=== PATIENT | male | born 1945 | race Caucasian/White ===

== ENCOUNTER 2018-12-08 10:05 | Inpatient (IN) | payer OTHER ==
[2018-12-08 10:42] LABS: ADD MAN DIFF? NO
[2018-12-08 10:46] LABS: BASOPHILS % 0.3 % (0.0-2.0); EOSINOPHILS % 0.2 % (0.0-7.0); HEMATOCRIT 37.7 % (42.0-52.0); LYMPHOCYTES # 1.5 10^3/ul (0.8-2.9); LYMPHOCYTES % 14.3 % (15.0-51.0); MEAN CORPUSCULAR HEMOGLOBIN 29.3 pg (29.0-33.0); MEAN CORPUSCULAR HGB CONC 31.8 g/dl (32.0-37.0); MEAN CORPUSCULAR VOLUME 92.2 fl (82.0-101.0); MEAN PLATELET VOLUME 9.3 fl (7.4-10.4); MONOCYTE # 0.6 10^3/ul (0.3-0.9); MONOCYTES % 5.8 % (0.0-11.0); NEUTROPHIL # 8.3 10^3/ul (1.6-7.5); NEUTROPHILS % 78.9 % (39.0-77.0); PLATELET COUNT 354 10^3/UL (140-415); RED BLOOD COUNT 4.09 10^6/ul (4.70-6.10); RED CELL DISTRIBUTION WIDTH 12.4 % (11.5-14.5)
[2018-12-08 10:46] LABS: WHITE BLOOD COUNT 10.5 10^3/ul (4.8-10.8)
[2018-12-08 11:06] LABS: INR 1.08; PROTIME 14.1 Sec (11.9-14.9); PT RATIO 1.1
[2018-12-08 11:21] LABS: ALANINE AMINOTRANSFERASE 25 IU/L (13-69); ALBUMIN/GLOBULIN RATIO 0.86; ALKALINE PHOSPHATASE 107 IU/L (42-121); ANION GAP 12 (5-13); ASPARTATE AMINO TRANSFERASE 32 IU/L (15-46); BILIRUBIN,INDIRECT 0.5 mg/dl (0-1.1); BILIRUBIN,TOTAL 0.5 mg/dl (0.2-1.3); BLOOD UREA NITROGEN 31 mg/dl (7-20); CALCIUM 9.7 mg/dl (8.4-10.2); CARBON DIOXIDE 25 mmol/L (21-31); CHLORIDE 99 mmol/L (97-110); CREATININE 1.95 mg/dl (0.61-1.24); GLUCOSE 219 mg/dl (70-220); SODIUM 136 mmol/L (135-144); TOTAL PROTEIN 8.6 g/dl (6.1-8.1)
[2018-12-08] MEDS: PIPER-TAZO 3.375 GM IV (PMX) 100 ML IVPB (11:31)
[2018-12-08 11:32] LABS: TROPONIN-I < 0.012 ng/ml (0.000-0.120)
[2018-12-08] MEDS: VANCOMYCIN 1 GM (PMX) 250 ML IVPB (12:13)
[2018-12-08] MEDS ORDERED: ACETAMINOPHEN 325 MG TAB PO (13:00)
[2018-12-08] MEDS ORDERED: ONDANSETRON 4 MG INJ IV ×2 (13:00→14:00)
[2018-12-08 13:07] LABS: LACTIC ACID 1.3 mmol/L (0.5-2.0)
[2018-12-08] MEDS ORDERED: ZOLPIDEM 5 MG TAB PO (14:00)
[2018-12-08] MEDS ORDERED: ACETAMINOPHEN/CODEINE #3 TAB PO (14:00)
[2018-12-08] MEDS ORDERED: morphine 2 MG INJ IV (14:00)
[2018-12-08] MEDS ORDERED: GLUCOSE GEL 15 GRAM TUBE BUCCAL (14:30)
[2018-12-08] MEDS ORDERED: GLUCOSE GEL 15 GRAM TUBE PO ×2 (14:30)
[2018-12-08] MEDS ORDERED: DEXTROSE 50% 50 ML SYRINGE IV ×2 (14:30)
[2018-12-08] MEDS ORDERED: GLUCAGON 1 MG INJ IM (14:30)
[2018-12-08] MEDS: SOD CHLORIDE 0.9% 1,000 ML IV (15:39)
[2018-12-08] MEDS: DOCUSATE SODIUM 100 MG CAP PO (15:40)
[2018-12-08] MEDS: HEPARIN 5,000 UNIT/1 ML VIAL SC ×2 (15:43→21:12)
[2018-12-08] MEDS ORDERED: VANCOMYCIN IV PER PHARMACY XX (16:30)
[2018-12-08 17:06] LABS: LACTIC ACID 1.3 mmol/L (0.5-2.0)
[2018-12-08] MEDS: LEVOFLOXACIN 500MG/D5W (PMX) 100 ML IVPB (17:34)
[2018-12-08] MEDS: INSULIN ASPART [NOVOLOG] 3 ML PEN SC ×4 (17:36→21:11)
[2018-12-08] MEDS ORDERED: POVIDONE IODINE 10% 28.4 GM OINT TOP (21:00)
[2018-12-08] MEDS ORDERED: BETADINE SOLUTION TOP (21:00)
[2018-12-08] MEDS: INSULIN GLARGINE [LANTus] (100 UNITS/ML) SYG SC (21:10)
[2018-12-08] MEDS: FAMOTIDINE 20 MG TAB PO (21:14)
[2018-12-08] MEDS: BETADINE SOLUTION TOP (21:37)
[2018-12-09] MEDS: DOCUSATE SODIUM 100 MG CAP PO ×2 (02:00→14:00)
[2018-12-09] MEDS: ACCU-CHEK XX (02:30)
[2018-12-09] MEDS: SOD CHLORIDE 0.9% 1,000 ML IV ×2 (04:05→15:12)
[2018-12-09] MEDS: HEPARIN 5,000 UNIT/1 ML VIAL SC ×3 (06:07→23:02)
[2018-12-09] MEDS: LOPERAMIDE 2 MG CAP PO (06:30)
[2018-12-09 07:17] LABS: ADD MAN DIFF? NO
[2018-12-09 07:20] LABS: BASOPHILS % 0.3 % (0.0-2.0); EOSINOPHILS % 0.4 % (0.0-7.0); HEMATOCRIT 32.3 % (42.0-52.0); HEMOGLOBIN 10.3 g/dl (14.0-18.0); LYMPHOCYTES # 1.4 10^3/ul (0.8-2.9); LYMPHOCYTES % 18.9 % (15.0-51.0); MEAN CORPUSCULAR HEMOGLOBIN 29.3 pg (29.0-33.0); MEAN CORPUSCULAR HGB CONC 31.9 g/dl (32.0-37.0); MONOCYTE # 0.6 10^3/ul (0.3-0.9); MONOCYTES % 7.7 % (0.0-11.0); NEUTROPHIL # 5.3 10^3/ul (1.6-7.5); NEUTROPHILS % 72.3 % (39.0-77.0); PLATELET COUNT 323 10^3/UL (140-415); RED BLOOD COUNT 3.51 10^6/ul (4.70-6.10); RED CELL DISTRIBUTION WIDTH 12.3 % (11.5-14.5)
[2018-12-09 07:20] LABS: WHITE BLOOD COUNT 7.3 10^3/ul (4.8-10.8)
[2018-12-09 07:35] LABS: HEMOGLOBIN A1C 12.9 % (0-5.9)
[2018-12-09 07:47] LABS: ANION GAP 9 (5-13); BLOOD UREA NITROGEN 24 mg/dl (7-20); CALCIUM 8.9 mg/dl (8.4-10.2); CARBON DIOXIDE 24 mmol/L (21-31); CHLORIDE 102 mmol/L (97-110); CHOL/HDL RATIO 9.8 RATIO; CHOLESTEROL 128 mg/dl (100-200); GLUCOSE 123 mg/dl (70-220); HDL CHOLESTEROL 13 mg/dl (31-75); LDL CHOLESTEROL,CALCULATED 82 mg/dl; PHOSPHORUS 3.9 mg/dl (2.5-4.9); POTASSIUM 4.8 mmol/L (3.5-5.1); SODIUM 135 mmol/L (135-144); TRIGLYCERIDES 164 mg/dl (0-149)
[2018-12-09] MEDS: INSULIN ASPART [NOVOLOG] 3 ML PEN SC ×7 (08:00→21:00)
[2018-12-09] MEDS: VANCOMYCIN 1 GM 250 ML IVPB (08:56)
[2018-12-09] MEDS: CHOLECALCIFEROL 1,000 UNIT TAB PO (08:58)
[2018-12-09] MEDS: ASPIRIN 81 MG TAB PO (08:58)
[2018-12-09] MEDS: FAMOTIDINE 20 MG TAB PO ×2 (08:58→23:00)
[2018-12-09] MEDS: BETADINE SOLUTION TOP ×2 (09:00→21:00)
[2018-12-09] MEDS ORDERED: LIDOCAINE 1% (MDV) 20 ML INJ (11:27)
[2018-12-09] MEDS ORDERED: HEPARIN 1000 UNITS/NS (A-LINE) 1,000 ML (11:27)
[2018-12-09] MEDS ORDERED: IODIXANOL LOCM 100 ML BTL ×2 (11:27→12:54)
[2018-12-09] MEDS: LEVOFLOXACIN 500MG/D5W (PMX) 100 ML IVPB (17:28)
[2018-12-09] MEDS: ATORVASTATIN 40 MG TAB PO (23:00)
[2018-12-09] MEDS: INSULIN GLARGINE [LANTus] (100 UNITS/ML) SYG SC (23:01)
[2018-12-10] MEDS: SOD CHLORIDE 0.9% 1,000 ML IV ×3 (00:15→20:42)
[2018-12-10] MEDS: DOCUSATE SODIUM 100 MG CAP PO ×2 (01:23→13:27)
[2018-12-10] MEDS: ACCU-CHEK XX (01:23)
[2018-12-10] MEDS: ACETAMINOPHEN 325 MG TAB PO (01:24)
[2018-12-10] MEDS: HEPARIN 5,000 UNIT/1 ML VIAL SC ×3 (05:31→22:44)
[2018-12-10] MEDS: INSULIN ASPART [NOVOLOG] 3 ML PEN SC ×7 (08:00→20:44)
[2018-12-10] MEDS: VANCOMYCIN 1 GM 250 ML IVPB (09:16)
[2018-12-10] MEDS: FAMOTIDINE 20 MG TAB PO ×2 (09:17→20:35)
[2018-12-10] MEDS: CHOLECALCIFEROL 1,000 UNIT TAB PO (09:17)
[2018-12-10] MEDS: ASPIRIN 81 MG TAB PO (09:17)
[2018-12-10] MEDS: BETADINE SOLUTION TOP ×3 (09:27→22:48)
[2018-12-10 13:54] LABS: ADD UMIC YES; UR ASCORBIC ACID NEGATIVE (NEGATIVE); UR BILIRUBIN (Dip) NEGATIVE (NEGATIVE); UR BLOOD (Dip) 1+ mg/dL (NEGATIVE); UR CLARITY CLEAR (CLEAR); UR COLOR YELLOW (YELLOW); UR GLUCOSE (Dip) 3+ mg/dL (NEGATIVE); UR KETONES (Dip) NEGATIVE (NEGATIVE); UR LEUKOCYTE ESTERASE (Dip) NEGATIVE Leu/ul (NEGATIVE); UR NITRITE (Dip) NEGATIVE (NEGATIVE); UR RBC 2 /HPF (0-5); UR SPECIFIC GRAVITY (Dip) 1.014 (1.003-1.030); UR TOTAL PROTEIN (Dip) NEGATIVE (NEGATIVE); UR UROBILINOGEN (Dip) NEGATIVE (NEGATIVE); UR WBC 0 /HPF (0-5)
[2018-12-10 14:17] LABS: CREATININE,URINE RANDOM 54.28 mg/dl (20-370)
[2018-12-10 14:17] LABS: SODIUM,URINE RANDOM 75 mmol/L (30-90)
[2018-12-10] MEDS: LEVOFLOXACIN 500MG/D5W (PMX) 100 ML IVPB (16:26)
[2018-12-10] MEDS: HYDROCODONE/APAP (5/325) TAB PO (16:26)
[2018-12-10] MEDS: ATORVASTATIN 40 MG TAB PO (20:35)
[2018-12-10] MEDS: INSULIN GLARGINE [LANTus] (100 UNITS/ML) SYG SC (20:36)
[2018-12-11] MEDS: DOCUSATE SODIUM 100 MG CAP PO ×2 (02:00→14:00)
[2018-12-11] MEDS: ACCU-CHEK XX (02:00)
[2018-12-11] MEDS: HEPARIN 5,000 UNIT/1 ML VIAL SC ×3 (06:03→22:09)
[2018-12-11] MEDS: INSULIN ASPART [NOVOLOG] 3 ML PEN SC ×7 (08:00→20:26)
[2018-12-11] MEDS: HYDROCODONE/APAP (5/325) TAB PO (08:11)
[2018-12-11] MEDS: CHOLECALCIFEROL 1,000 UNIT TAB PO (08:11)
[2018-12-11] MEDS: FAMOTIDINE 20 MG TAB PO ×2 (08:11→20:22)
[2018-12-11] MEDS: ASPIRIN 81 MG TAB PO (08:11)
[2018-12-11] MEDS: BETADINE SOLUTION TOP ×2 (08:22→20:28)
[2018-12-11 08:55] LABS: CREATININE 1.15 mg/dl (0.61-1.24)
[2018-12-11 08:55] LABS: BLOOD UREA NITROGEN 15 mg/dl (7-20)
[2018-12-11 09:22] LABS: VANCOMYCIN,TROUGH 7.9 ug/ml (10.0-20.0)
[2018-12-11] MEDS: VANCOMYCIN 1.5 GM/NS 250 ML 250 ML IVPB (11:38)
[2018-12-11] MEDS: LEVOFLOXACIN 500MG/D5W (PMX) 100 ML IVPB (17:22)
[2018-12-11] MEDS: ATORVASTATIN 40 MG TAB PO (20:22)
[2018-12-11] MEDS: INSULIN GLARGINE [LANTus] (100 UNITS/ML) SYG SC (20:26)
[2018-12-12] MEDS: ACCU-CHEK XX (01:40)
[2018-12-12] MEDS: DOCUSATE SODIUM 100 MG CAP PO ×2 (02:50→13:24)
[2018-12-12] MEDS: HEPARIN 5,000 UNIT/1 ML VIAL SC ×3 (06:04→21:12)
[2018-12-12 07:34] LABS: ADD MAN DIFF? NO
[2018-12-12 07:44] LABS: BASOPHILS % 0.5 % (0.0-2.0); EOSINOPHILS # 0.1 10^3/ul (0.0-0.5); EOSINOPHILS % 0.8 % (0.0-7.0); HEMATOCRIT 32.7 % (42.0-52.0); HEMOGLOBIN 10.5 g/dl (14.0-18.0); LYMPHOCYTES # 1.6 10^3/ul (0.8-2.9); MEAN CORPUSCULAR HEMOGLOBIN 29.6 pg (29.0-33.0); MEAN CORPUSCULAR HGB CONC 32.1 g/dl (32.0-37.0); MEAN CORPUSCULAR VOLUME 92.1 fl (82.0-101.0); MONOCYTE # 0.5 10^3/ul (0.3-0.9); MONOCYTES % 8.3 % (0.0-11.0); NEUTROPHIL # 4.2 10^3/ul (1.6-7.5); NEUTROPHILS % 64.8 % (39.0-77.0); PLATELET COUNT 320 10^3/UL (140-415); RED BLOOD COUNT 3.55 10^6/ul (4.70-6.10); RED CELL DISTRIBUTION WIDTH 12.4 % (11.5-14.5)
[2018-12-12 07:44] LABS: WHITE BLOOD COUNT 6.5 10^3/ul (4.8-10.8)
[2018-12-12] MEDS: INSULIN ASPART [NOVOLOG] 3 ML PEN SC ×7 (08:00→20:45)
[2018-12-12] MEDS: ASPIRIN 81 MG TAB PO (08:09)
[2018-12-12] MEDS: CHOLECALCIFEROL 1,000 UNIT TAB PO (08:09)
[2018-12-12] MEDS: FAMOTIDINE 20 MG TAB PO ×2 (08:09→20:38)
[2018-12-12] MEDS: BETADINE SOLUTION TOP ×2 (08:19→20:45)
[2018-12-12 08:20] LABS: ANION GAP 9 (5-13); BLOOD UREA NITROGEN 16 mg/dl (7-20); CARBON DIOXIDE 23 mmol/L (21-31); CHLORIDE 104 mmol/L (97-110); CREATININE 1.16 mg/dl (0.61-1.24); GLUCOSE 95 mg/dl (70-220); MAGNESIUM 1.6 mg/dl (1.7-2.5); POTASSIUM 4.1 mmol/L (3.5-5.1); SODIUM 136 mmol/L (135-144)
[2018-12-12] MEDS: MAGNESIUM SULFATE 2 GM/50 ML 50 ML IVPB (10:10)
[2018-12-12] MEDS ORDERED: MAGNESIUM SULFATE 2 GM/50 ML 50 ML IVPB (11:30)
[2018-12-12] MEDS: HYDROCODONE/APAP (5/325) TAB PO (13:40)
[2018-12-12] MEDS: FLUCONAZOLE 200 MG TAB PO (13:40)
[2018-12-12] MEDS: LEVOFLOXACIN 500MG/D5W (PMX) 100 ML IVPB (16:58)
[2018-12-12] MEDS: ATORVASTATIN 40 MG TAB PO (20:38)
[2018-12-12] MEDS: INSULIN GLARGINE [LANTus] (100 UNITS/ML) SYG SC (20:44)
[2018-12-13] MEDS: ACCU-CHEK XX (02:00)
[2018-12-13] MEDS: DOCUSATE SODIUM 100 MG CAP PO ×2 (02:13→14:16)
[2018-12-13] MEDS: HEPARIN 5,000 UNIT/1 ML VIAL SC ×3 (05:26→21:42)
[2018-12-13 06:47] LABS: ADD MAN DIFF? NO
[2018-12-13 06:54] LABS: WHITE BLOOD COUNT 6.7 10^3/ul (4.8-10.8)
[2018-12-13 06:54] LABS: BASOPHILS % 0.6 % (0.0-2.0); EOSINOPHILS # 0.1 10^3/ul (0.0-0.5); EOSINOPHILS % 1.2 % (0.0-7.0); HEMATOCRIT 33.6 % (42.0-52.0); HEMOGLOBIN 10.6 g/dl (14.0-18.0); LYMPHOCYTES # 1.6 10^3/ul (0.8-2.9); LYMPHOCYTES % 23.3 % (15.0-51.0); MEAN CORPUSCULAR HEMOGLOBIN 28.9 pg (29.0-33.0); MEAN CORPUSCULAR HGB CONC 31.5 g/dl (32.0-37.0); MEAN CORPUSCULAR VOLUME 91.6 fl (82.0-101.0); MONOCYTE # 0.5 10^3/ul (0.3-0.9); MONOCYTES % 7.5 % (0.0-11.0); NEUTROPHIL # 4.5 10^3/ul (1.6-7.5); NEUTROPHILS % 66.8 % (39.0-77.0); PLATELET COUNT 324 10^3/UL (140-415); RED BLOOD COUNT 3.67 10^6/ul (4.70-6.10); RED CELL DISTRIBUTION WIDTH 12.5 % (11.5-14.5)
[2018-12-13 07:32] LABS: PHOSPHORUS 4.2 mg/dl (2.5-4.9)
[2018-12-13 07:32] LABS: MAGNESIUM 1.8 mg/dl (1.7-2.5)
[2018-12-13 07:58] LABS: ANION GAP 10 (5-13); BLOOD UREA NITROGEN 18 mg/dl (7-20); CALCIUM 9.1 mg/dl (8.4-10.2); CARBON DIOXIDE 23 mmol/L (21-31); CHLORIDE 104 mmol/L (97-110); GLUCOSE 91 mg/dl (70-220); POTASSIUM 4.2 mmol/L (3.5-5.1); SODIUM 137 mmol/L (135-144)
[2018-12-13] MEDS: INSULIN ASPART [NOVOLOG] 3 ML PEN SC ×7 (08:00→20:34)
[2018-12-13] MEDS: CHOLECALCIFEROL 1,000 UNIT TAB PO (08:12)
[2018-12-13] MEDS: ASPIRIN 81 MG TAB PO (08:12)
[2018-12-13] MEDS: FLUCONAZOLE 200 MG TAB PO (08:12)
[2018-12-13] MEDS: FAMOTIDINE 20 MG TAB PO ×2 (08:12→20:35)
[2018-12-13] MEDS: BETADINE SOLUTION TOP ×2 (08:14→20:38)
[2018-12-13 16:02] LABS: CREATININE, RANDOM URINE 53 mg/dL (20-320); MICROALBUMIN 4.6 mg/dL; MICROALBUMIN/CREATININE RATIO 87 (<30)
[2018-12-13] MEDS: LEVOFLOXACIN 500MG/D5W (PMX) 100 ML IVPB (16:38)
[2018-12-13] MEDS: ATORVASTATIN 40 MG TAB PO (20:35)
[2018-12-13] MEDS: INSULIN GLARGINE [LANTus] (100 UNITS/ML) SYG SC (20:37)
[2018-12-14] MEDS: ACCU-CHEK XX (01:41)
[2018-12-14] MEDS: DOCUSATE SODIUM 100 MG CAP PO ×2 (01:42→14:14)
[2018-12-14] MEDS: HEPARIN 5,000 UNIT/1 ML VIAL SC ×3 (05:36→22:30)
[2018-12-14 05:52] LABS: ADD MAN DIFF? NO
[2018-12-14 05:59] LABS: WHITE BLOOD COUNT 7.3 10^3/ul (4.8-10.8)
[2018-12-14 05:59] LABS: BASOPHILS % 0.3 % (0.0-2.0); EOSINOPHILS # 0.1 10^3/ul (0.0-0.5); EOSINOPHILS % 1.1 % (0.0-7.0); HEMATOCRIT 33.7 % (42.0-52.0); HEMOGLOBIN 10.6 g/dl (14.0-18.0); LYMPHOCYTES # 1.9 10^3/ul (0.8-2.9); LYMPHOCYTES % 25.5 % (15.0-51.0); MEAN CORPUSCULAR HEMOGLOBIN 28.6 pg (29.0-33.0); MEAN CORPUSCULAR HGB CONC 31.5 g/dl (32.0-37.0); MEAN CORPUSCULAR VOLUME 91.1 fl (82.0-101.0); MEAN PLATELET VOLUME 8.6 fl (7.4-10.4); MONOCYTE # 0.6 10^3/ul (0.3-0.9); MONOCYTES % 8.7 % (0.0-11.0); NEUTROPHIL # 4.6 10^3/ul (1.6-7.5); NEUTROPHILS % 63.7 % (39.0-77.0); PLATELET COUNT 323 10^3/UL (140-415); RED CELL DISTRIBUTION WIDTH 12.7 % (11.5-14.5)
[2018-12-14 06:11] LABS: MAGNESIUM 1.7 mg/dl (1.7-2.5)
[2018-12-14 06:11] LABS: PHOSPHORUS 4.4 mg/dl (2.5-4.9)
[2018-12-14 06:16] LABS: ANION GAP 8 (5-13); BLOOD UREA NITROGEN 19 mg/dl (7-20); CALCIUM 9.3 mg/dl (8.4-10.2); CARBON DIOXIDE 23 mmol/L (21-31); CHLORIDE 105 mmol/L (97-110); CREATININE 1.23 mg/dl (0.61-1.24); GLUCOSE 106 mg/dl (70-220); POTASSIUM 4.3 mmol/L (3.5-5.1); SODIUM 136 mmol/L (135-144)
[2018-12-14] MEDS: INSULIN ASPART [NOVOLOG] 3 ML PEN SC ×7 (08:00→20:51)
[2018-12-14] MEDS: CHOLECALCIFEROL 1,000 UNIT TAB PO (08:24)
[2018-12-14] MEDS: FAMOTIDINE 20 MG TAB PO ×2 (08:24→20:50)
[2018-12-14] MEDS: ASPIRIN 81 MG TAB PO (08:25)
[2018-12-14] MEDS: BETADINE SOLUTION TOP ×3 (11:05→20:52)
[2018-12-14] MEDS: HYDROCODONE/APAP (5/325) TAB PO (14:14)
[2018-12-14] MEDS: LEVOFLOXACIN 500MG/D5W (PMX) 100 ML IVPB (17:08)
[2018-12-14] MEDS: ATORVASTATIN 40 MG TAB PO (20:50)
[2018-12-14] MEDS: INSULIN GLARGINE [LANTus] (100 UNITS/ML) SYG SC (20:51)
[2018-12-15] MEDS: DOCUSATE SODIUM 100 MG CAP PO ×2 (01:05→13:07)
[2018-12-15] MEDS: ACCU-CHEK XX (01:05)
[2018-12-15] MEDS: HEPARIN 5,000 UNIT/1 ML VIAL SC (05:07)
[2018-12-15] MEDS: SOD CHLORIDE 0.9% 1,000 ML IV (05:41)
[2018-12-15 06:18] LABS: ADD MAN DIFF? NO
[2018-12-15 06:44] LABS: WHITE BLOOD COUNT 7.1 10^3/ul (4.8-10.8)
[2018-12-15 06:44] LABS: BASOPHILS % 0.4 % (0.0-2.0); EOSINOPHILS # 0.1 10^3/ul (0.0-0.5); EOSINOPHILS % 1.1 % (0.0-7.0); HEMATOCRIT 33.1 % (42.0-52.0); HEMOGLOBIN 10.6 g/dl (14.0-18.0); LYMPHOCYTES # 1.6 10^3/ul (0.8-2.9); LYMPHOCYTES % 23.2 % (15.0-51.0); MEAN CORPUSCULAR HEMOGLOBIN 29.4 pg (29.0-33.0); MEAN CORPUSCULAR VOLUME 91.7 fl (82.0-101.0); MEAN PLATELET VOLUME 8.7 fl (7.4-10.4); MONOCYTE # 0.6 10^3/ul (0.3-0.9); MONOCYTES % 8.5 % (0.0-11.0); NEUTROPHIL # 4.7 10^3/ul (1.6-7.5); NEUTROPHILS % 66.2 % (39.0-77.0); PLATELET COUNT 325 10^3/UL (140-415); RED BLOOD COUNT 3.61 10^6/ul (4.70-6.10); RED CELL DISTRIBUTION WIDTH 12.6 % (11.5-14.5)
[2018-12-15 06:48] LABS: MAGNESIUM 1.7 mg/dl (1.7-2.5)
[2018-12-15 06:48] LABS: PHOSPHORUS 4.7 mg/dl (2.5-4.9)
[2018-12-15 06:51] LABS: ANION GAP 12 (5-13); BLOOD UREA NITROGEN 26 mg/dl (7-20); CALCIUM 9.4 mg/dl (8.4-10.2); CARBON DIOXIDE 21 mmol/L (21-31); CHLORIDE 104 mmol/L (97-110); CREATININE 1.28 mg/dl (0.61-1.24); GLUCOSE 136 mg/dl (70-220); POTASSIUM 4.5 mmol/L (3.5-5.1); SODIUM 137 mmol/L (135-144)
[2018-12-15] MEDS ORDERED: GELATIN SIZE 100 SPONGE (06:52)
[2018-12-15] MEDS ORDERED: HEPARIN 1000 UNITS/ML 10 ML INJ ×2 (06:52→09:15)
[2018-12-15] MEDS ORDERED: THROMBIN 5000 UNIT (RECOTHROM) VIAL (06:52)
[2018-12-15] MEDS: HEPARIN 1000 UNITS/ML 10 ML INJ IRR (07:15)
[2018-12-15] MEDS ORDERED: GLYCOPYRROLATE 0.4 MG INJ ×2 (07:22→08:34)
[2018-12-15] MEDS ORDERED: LIDOCAINE 2% (SDV) 5 ML INJ (07:22)
[2018-12-15] MEDS ORDERED: ROCURONIUM 50 MG INJ ×2 (07:22→08:06)
[2018-12-15] MEDS ORDERED: SUCCINYLCHOLINE CHLORIDE 100 MG/5 ML SYG IV (07:22)
[2018-12-15] MEDS ORDERED: NEOSTIGMINE 3 MG/3 ML SYRINGE ×2 (07:22→08:34)
[2018-12-15] MEDS ORDERED: PROPOFOL 20 ML (07:22)
[2018-12-15] MEDS: INSULIN ASPART [NOVOLOG] 3 ML PEN SC ×8 (07:35→20:52)
[2018-12-15] MEDS ORDERED: MEPERIDINE 100 MG INJ (08:17)
[2018-12-15] MEDS ORDERED: CEFAZOLIN 1 GM INJ (08:33)
[2018-12-15] MEDS: FAMOTIDINE 20 MG TAB PO ×2 (09:00→20:10)
[2018-12-15] MEDS: BETADINE SOLUTION TOP ×2 (09:00→20:31)
[2018-12-15] MEDS: ASPIRIN 81 MG TAB PO ×2 (09:00→13:07)
[2018-12-15] MEDS: CHOLECALCIFEROL 1,000 UNIT TAB PO (09:00)
[2018-12-15] MEDS ORDERED: LABETALOL HCL 20MG INJ IV (09:30)
[2018-12-15] MEDS ORDERED: HYDROmorphONE 0.5 MG/0.5 ML SYG IV ×3 (09:30)
[2018-12-15] MEDS ORDERED: MEPERIDINE 25 MG INJ IV (09:30)
[2018-12-15] MEDS ORDERED: EPHEDrine 25 MG/5 ML SYG IV (09:30)
[2018-12-15] MEDS ORDERED: ONDANSETRON 4 MG INJ IV (09:30)
[2018-12-15] MEDS ORDERED: MIDAZOLAM 1 MG/ML 2 ML INJ IV (09:30)
[2018-12-15] MEDS ORDERED: DIPHENHYDRAMINE 50 MG INJ IV (09:30)
[2018-12-15] MEDS ORDERED: METOCLOPRAMIDE 10 MG INJ IV (09:30)
[2018-12-15] MEDS ORDERED: FENTAnyl 50 MCG/ML VIAL IV ×3 (09:30)
[2018-12-15] MEDS ORDERED: hydrALAzine 20 MG INJ IV (09:30)
[2018-12-15] MEDS ORDERED: ONDANSETRON 4 MG INJ (10:06)
[2018-12-15] MEDS ORDERED: LABETALOL HCL 20MG INJ (10:26)
[2018-12-15] MEDS: LACTATED RINGER'S 1,000 ML IV ×2 (10:30→17:01)
[2018-12-15] MEDS ORDERED: niCARdipine 50 MG in SOD CHLORIDE 0.9% 480 ML IV (12:00)
[2018-12-15] MEDS: CLOPIDOGREL 75 MG TAB PO (13:06)
[2018-12-15] MEDS: HYDROCODONE/APAP (5/325) TAB PO ×2 (13:21→23:34)
[2018-12-15] MEDS: LEVOFLOXACIN 500 MG TAB PO (17:00)
[2018-12-15] MEDS: ATORVASTATIN 40 MG TAB PO (20:10)
[2018-12-15] MEDS: INSULIN GLARGINE [LANTus] (100 UNITS/ML) SYG SC (20:12)
[2018-12-16] MEDS: DOCUSATE SODIUM 100 MG CAP PO ×2 (01:26→15:16)
[2018-12-16] MEDS: ACCU-CHEK XX (02:00)
[2018-12-16 05:01] LABS: ADD MAN DIFF? NO
[2018-12-16 05:06] LABS: BASOPHILS % 0.2 % (0.0-2.0); EOSINOPHILS % 0.4 % (0.0-7.0); HEMATOCRIT 29.4 % (42.0-52.0); HEMOGLOBIN 9.4 g/dl (14.0-18.0); LYMPHOCYTES # 1.7 10^3/ul (0.8-2.9); LYMPHOCYTES % 21.1 % (15.0-51.0); MEAN CORPUSCULAR HEMOGLOBIN 29.3 pg (29.0-33.0); MEAN CORPUSCULAR VOLUME 91.6 fl (82.0-101.0); MEAN PLATELET VOLUME 8.5 fl (7.4-10.4); MONOCYTE # 0.7 10^3/ul (0.3-0.9); NEUTROPHIL # 5.6 10^3/ul (1.6-7.5); NEUTROPHILS % 68.7 % (39.0-77.0); PLATELET COUNT 269 10^3/UL (140-415); RED BLOOD COUNT 3.21 10^6/ul (4.70-6.10)
[2018-12-16 05:06] LABS: WHITE BLOOD COUNT 8.1 10^3/ul (4.8-10.8)
[2018-12-16 05:23] LABS: ANION GAP 8 (5-13); BLOOD UREA NITROGEN 15 mg/dl (7-20); CALCIUM 8.6 mg/dl (8.4-10.2); CARBON DIOXIDE 26 mmol/L (21-31); CHLORIDE 102 mmol/L (97-110); GLUCOSE 97 mg/dl (70-220); POTASSIUM 4.3 mmol/L (3.5-5.1); SODIUM 136 mmol/L (135-144)
[2018-12-16 05:28] LABS: PHOSPHORUS 3.9 mg/dl (2.5-4.9)
[2018-12-16 05:28] LABS: MAGNESIUM 1.5 mg/dl (1.7-2.5)
[2018-12-16] MEDS: LEVOFLOXACIN 500 MG TAB PO (05:46)
[2018-12-16] MEDS: INSULIN ASPART [NOVOLOG] 3 ML PEN SC ×7 (08:37→20:42)
[2018-12-16] MEDS: CHOLECALCIFEROL 1,000 UNIT TAB PO (08:50)
[2018-12-16] MEDS: CLOPIDOGREL 75 MG TAB PO (08:50)
[2018-12-16] MEDS: FAMOTIDINE 20 MG TAB PO ×2 (08:50→20:43)
[2018-12-16] MEDS: ASPIRIN 81 MG TAB PO (08:52)
[2018-12-16] MEDS: MAGNESIUM SULFATE 2 GM/50 ML 50 ML IVPB (08:56)
[2018-12-16] MEDS: BETADINE SOLUTION TOP ×2 (12:32→20:44)
[2018-12-16] MEDS: ACETAMINOPHEN 325 MG TAB PO (15:16)
[2018-12-16] MEDS ORDERED: VANCOMYCIN IV PER PHARMACY XX (16:00)
[2018-12-16] MEDS: MEROPENEM 1 GM/50ML(PMX) 50 ML IVPB ×2 (16:53→20:43)
[2018-12-16] MEDS: VANCOMYCIN 1.5 GM/NS 250 ML 250 ML IVPB (17:32)
[2018-12-16] MEDS: ATORVASTATIN 40 MG TAB PO (20:43)
[2018-12-16] MEDS: INSULIN GLARGINE [LANTus] (100 UNITS/ML) SYG SC (22:10)
[2018-12-17] MEDS: DOCUSATE SODIUM 100 MG CAP PO ×2 (03:17→14:14)
[2018-12-17 06:20] LABS: ADD MAN DIFF? NO
[2018-12-17 06:27] LABS: WHITE BLOOD COUNT 8.6 10^3/ul (4.8-10.8)
[2018-12-17 06:27] LABS: BASOPHILS % 0.2 % (0.0-2.0); EOSINOPHILS # 0.1 10^3/ul (0.0-0.5); EOSINOPHILS % 0.8 % (0.0-7.0); HEMATOCRIT 29.6 % (42.0-52.0); HEMOGLOBIN 9.3 g/dl (14.0-18.0); LYMPHOCYTES # 1.6 10^3/ul (0.8-2.9); LYMPHOCYTES % 18.2 % (15.0-51.0); MEAN CORPUSCULAR HEMOGLOBIN 28.7 pg (29.0-33.0); MEAN CORPUSCULAR HGB CONC 31.4 g/dl (32.0-37.0); MEAN CORPUSCULAR VOLUME 91.4 fl (82.0-101.0); MEAN PLATELET VOLUME 8.7 fl (7.4-10.4); MONOCYTE # 0.7 10^3/ul (0.3-0.9); MONOCYTES % 7.8 % (0.0-11.0); NEUTROPHIL # 6.2 10^3/ul (1.6-7.5); NEUTROPHILS % 72.5 % (39.0-77.0); PLATELET COUNT 293 10^3/UL (140-415); RED BLOOD COUNT 3.24 10^6/ul (4.70-6.10); RED CELL DISTRIBUTION WIDTH 12.8 % (11.5-14.5)
[2018-12-17 06:36] LABS: MAGNESIUM 1.8 mg/dl (1.7-2.5)
[2018-12-17 06:36] LABS: PHOSPHORUS 3.3 mg/dl (2.5-4.9)
[2018-12-17 06:37] LABS: ANION GAP 6 (5-13); BLOOD UREA NITROGEN 18 mg/dl (7-20); CARBON DIOXIDE 25 mmol/L (21-31); CHLORIDE 102 mmol/L (97-110); CREATININE 1.05 mg/dl (0.61-1.24); GLUCOSE 134 mg/dl (70-220); SODIUM 133 mmol/L (135-144)
[2018-12-17] MEDS: INSULIN ASPART [NOVOLOG] 3 ML PEN SC ×7 (07:44→20:19)
[2018-12-17] MEDS: MEROPENEM 1 GM/50ML(PMX) 50 ML IVPB ×2 (08:07→23:13)
[2018-12-17] MEDS: FAMOTIDINE 20 MG TAB PO ×2 (08:07→20:18)
[2018-12-17] MEDS: ASPIRIN 81 MG TAB PO (08:07)
[2018-12-17] MEDS: CLOPIDOGREL 75 MG TAB PO (08:08)
[2018-12-17] MEDS: CHOLECALCIFEROL 1,000 UNIT TAB PO (08:08)
[2018-12-17] MEDS: BETADINE SOLUTION TOP ×2 (09:00→21:00)
[2018-12-17] MEDS: VANCOMYCIN 1.5 GM/NS 250 ML 250 ML IVPB (17:38)
[2018-12-17] MEDS: ATORVASTATIN 40 MG TAB PO (20:18)
[2018-12-17] MEDS: INSULIN GLARGINE [LANTus] (100 UNITS/ML) SYG SC (23:09)
[2018-12-18 06:12] LABS: ADD MAN DIFF? NO
[2018-12-18 06:25] LABS: WHITE BLOOD COUNT 6.6 10^3/ul (4.8-10.8)
[2018-12-18 06:25] LABS: BASOPHILS % 0.5 % (0.0-2.0); EOSINOPHILS # 0.1 10^3/ul (0.0-0.5); EOSINOPHILS % 1.4 % (0.0-7.0); HEMATOCRIT 29.5 % (42.0-52.0); HEMOGLOBIN 9.4 g/dl (14.0-18.0); LYMPHOCYTES # 1.4 10^3/ul (0.8-2.9); LYMPHOCYTES % 21.2 % (15.0-51.0); MEAN CORPUSCULAR HEMOGLOBIN 28.7 pg (29.0-33.0); MEAN CORPUSCULAR HGB CONC 31.9 g/dl (32.0-37.0); MEAN CORPUSCULAR VOLUME 89.9 fl (82.0-101.0); MEAN PLATELET VOLUME 8.7 fl (7.4-10.4); MONOCYTE # 0.6 10^3/ul (0.3-0.9); MONOCYTES % 9.6 % (0.0-11.0); NEUTROPHIL # 4.4 10^3/ul (1.6-7.5); NEUTROPHILS % 66.8 % (39.0-77.0); PLATELET COUNT 323 10^3/UL (140-415); RED BLOOD COUNT 3.28 10^6/ul (4.70-6.10); RED CELL DISTRIBUTION WIDTH 12.8 % (11.5-14.5)
[2018-12-18 06:56] LABS: ANION GAP 8 (5-13); BLOOD UREA NITROGEN 18 mg/dl (7-20); CARBON DIOXIDE 25 mmol/L (21-31); CHLORIDE 103 mmol/L (97-110); CREATININE 0.94 mg/dl (0.61-1.24); GLUCOSE 148 mg/dl (70-220); POTASSIUM 3.9 mmol/L (3.5-5.1); SODIUM 136 mmol/L (135-144)
[2018-12-18 07:05] LABS: PHOSPHORUS 3.3 mg/dl (2.5-4.9)
[2018-12-18 07:05] LABS: MAGNESIUM 1.7 mg/dl (1.7-2.5)
[2018-12-18] MEDS: INSULIN ASPART [NOVOLOG] 3 ML PEN SC ×7 (07:49→20:58)
[2018-12-18] MEDS: MEROPENEM 1 GM/50ML(PMX) 50 ML IVPB ×2 (08:40→21:52)
[2018-12-18] MEDS: ASPIRIN 81 MG TAB PO (08:41)
[2018-12-18] MEDS: FAMOTIDINE 20 MG TAB PO ×2 (08:41→20:48)
[2018-12-18] MEDS: CLOPIDOGREL 75 MG TAB PO (08:41)
[2018-12-18] MEDS: CHOLECALCIFEROL 1,000 UNIT TAB PO (08:41)
[2018-12-18] MEDS: ENOXAPARIN 30 MG/0.3 ML SYG SC (08:46)
[2018-12-18] MEDS: DOCUSATE SODIUM 100 MG CAP PO ×2 (08:48→20:47)
[2018-12-18] MEDS ORDERED: MAGNESIUM SULFATE 2 GM/50 ML 50 ML IVPB (10:30)
[2018-12-18] MEDS: BETADINE SOLUTION TOP ×2 (12:13→20:50)
[2018-12-18] MEDS: VANCOMYCIN 1.5 GM/NS 250 ML 250 ML IVPB (16:55)
[2018-12-18] MEDS: MAGNESIUM SULFATE 2 GM/50 ML 50 ML IVPB (18:22)
[2018-12-18] MEDS: CASPOFUNGIN 70 MG in SOD CHLORIDE 0.9% 250 ML IVPB (20:44)
[2018-12-18] MEDS: ATORVASTATIN 40 MG TAB PO (20:48)
[2018-12-18] MEDS: INSULIN GLARGINE [LANTus] (100 UNITS/ML) SYG SC (20:59)
[2018-12-19 05:40] LABS: ADD MAN DIFF? NO
[2018-12-19 05:44] LABS: BASOPHILS % 0.6 % (0.0-2.0); EOSINOPHILS # 0.1 10^3/ul (0.0-0.5); HEMATOCRIT 30.5 % (42.0-52.0); HEMOGLOBIN 9.6 g/dl (14.0-18.0); LYMPHOCYTES # 1.7 10^3/ul (0.8-2.9); LYMPHOCYTES % 24.5 % (15.0-51.0); MEAN CORPUSCULAR HEMOGLOBIN 28.9 pg (29.0-33.0); MEAN CORPUSCULAR HGB CONC 31.5 g/dl (32.0-37.0); MEAN CORPUSCULAR VOLUME 91.9 fl (82.0-101.0); MEAN PLATELET VOLUME 8.5 fl (7.4-10.4); MONOCYTE # 0.8 10^3/ul (0.3-0.9); MONOCYTES % 10.7 % (0.0-11.0); NEUTROPHIL # 4.4 10^3/ul (1.6-7.5); NEUTROPHILS % 61.8 % (39.0-77.0); PLATELET COUNT 331 10^3/UL (140-415); RED BLOOD COUNT 3.32 10^6/ul (4.70-6.10); RED CELL DISTRIBUTION WIDTH 12.5 % (11.5-14.5)
[2018-12-19 05:44] LABS: WHITE BLOOD COUNT 7.1 10^3/ul (4.8-10.8)
[2018-12-19 06:11] LABS: ANION GAP 5 (5-13); BLOOD UREA NITROGEN 22 mg/dl (7-20); CALCIUM 9.2 mg/dl (8.4-10.2); CARBON DIOXIDE 28 mmol/L (21-31); CHLORIDE 103 mmol/L (97-110); GLUCOSE 193 mg/dl (70-220); SODIUM 136 mmol/L (135-144)
[2018-12-19 07:16] LABS: PHOSPHORUS 3.6 mg/dl (2.5-4.9)
[2018-12-19] MEDS: INSULIN ASPART [NOVOLOG] 3 ML PEN SC ×6 (07:46→21:00)
[2018-12-19] MEDS: ASPIRIN 81 MG TAB PO (08:34)
[2018-12-19] MEDS: FAMOTIDINE 20 MG TAB PO ×2 (08:34→20:57)
[2018-12-19] MEDS: CLOPIDOGREL 75 MG TAB PO (08:34)
[2018-12-19] MEDS: CHOLECALCIFEROL 1,000 UNIT TAB PO (08:34)
[2018-12-19] MEDS: MEROPENEM 1 GM/50ML(PMX) 50 ML IVPB (08:35)
[2018-12-19] MEDS: ENOXAPARIN 30 MG/0.3 ML SYG SC (08:41)
[2018-12-19] MEDS: DOCUSATE SODIUM 100 MG CAP PO ×2 (08:46→21:06)
[2018-12-19] MEDS: BETADINE SOLUTION TOP ×2 (09:00→21:02)
[2018-12-19] MEDS ORDERED: CASPOFUNGIN 50 MG in SOD CHLORIDE 0.9% 250 ML IVPB (18:00)
[2018-12-19] MEDS: FLUCONAZOLE 200 MG (PMX) 100 ML IVPB (18:05)
[2018-12-19] MEDS: CEFEPIME 2GM/50 ML IVPB (20:57)
[2018-12-19] MEDS: ATORVASTATIN 40 MG TAB PO (20:57)
[2018-12-19] MEDS: INSULIN GLARGINE [LANTus] (100 UNITS/ML) SYG SC (21:00)
[2018-12-20] MEDS: INSULIN ASPART [NOVOLOG] 3 ML PEN SC ×8 (06:08→23:00)
[2018-12-20] MEDS: BETADINE SOLUTION TOP ×2 (08:28→21:00)
[2018-12-20] MEDS: DOCUSATE SODIUM 100 MG CAP PO ×2 (08:28→23:20)
[2018-12-20] MEDS: CHOLECALCIFEROL 1,000 UNIT TAB PO (08:28)
[2018-12-20] MEDS: FAMOTIDINE 20 MG TAB PO ×2 (08:28→23:20)
[2018-12-20] MEDS: ASPIRIN 81 MG TAB PO (08:28)
[2018-12-20] MEDS: CLOPIDOGREL 75 MG TAB PO (08:28)
[2018-12-20] MEDS: CEFEPIME 2GM/50 ML IVPB ×2 (08:38→23:12)
[2018-12-20] MEDS ORDERED: INSULIN ASPART [NOVOLOG] 3 ML PEN SC (09:00)
[2018-12-20] MEDS: ENOXAPARIN 30 MG/0.3 ML SYG SC (09:00)
[2018-12-20] MEDS ORDERED: SUCCINYLCHOLINE CHLORIDE 100 MG/5 ML SYG IV (17:11)
[2018-12-20] MEDS ORDERED: PROPOFOL 20 ML (17:11)
[2018-12-20] MEDS ORDERED: LIDOCAINE 2% (SDV) 5 ML INJ (17:11)
[2018-12-20] MEDS ORDERED: ROCURONIUM 50 MG INJ (17:11)
[2018-12-20] MEDS: METHYLENE BLUE 50 MG/10 ML AMPUL (18:21)
[2018-12-20] MEDS: POLYMYXIN/BACITRACIN 1L IRRIG (18:21)
[2018-12-20] MEDS ORDERED: ONDANSETRON 4 MG INJ IV (18:30)
[2018-12-20] MEDS ORDERED: LABETALOL HCL 20MG INJ IV (18:30)
[2018-12-20] MEDS ORDERED: MEPERIDINE 25 MG INJ IV (18:30)
[2018-12-20] MEDS ORDERED: MIDAZOLAM 1 MG/ML 2 ML INJ IV (18:30)
[2018-12-20] MEDS ORDERED: HYDROmorphONE 1 MG/5 ML IV SYRINGE IV ×3 (18:30)
[2018-12-20] MEDS ORDERED: hydrALAzine 20 MG INJ IV (18:30)
[2018-12-20] MEDS ORDERED: FENTAnyl 50 MCG/ML VIAL IV ×3 (18:30)
[2018-12-20] MEDS ORDERED: EPHEDrine 25 MG/5 ML SYG IV (18:30)
[2018-12-20] MEDS ORDERED: DIPHENHYDRAMINE 50 MG INJ IV (18:30)
[2018-12-20] MEDS ORDERED: METOCLOPRAMIDE 10 MG INJ IV (18:30)
[2018-12-20] MEDS ORDERED: NEOSTIGMINE 3 MG/3 ML SYRINGE ×2 (19:47→19:49)
[2018-12-20] MEDS ORDERED: GLYCOPYRROLATE 0.4 MG INJ (19:47)
[2018-12-20] MEDS ORDERED: EPHEDrine 25 MG/5 ML SYG (19:47)
[2018-12-20] MEDS ORDERED: ALBUMIN HUMAN 5% 250 ML (20:21)
[2018-12-20 20:31] LABS: WHITE BLOOD COUNT 9.2 10^3/ul (4.8-10.8)
[2018-12-20 20:31] LABS: ADD MAN DIFF? NO; BASOPHIL # 0.1 10^3/ul (0.0-0.1); BASOPHILS % 0.5 % (0.0-2.0); EOSINOPHILS # 0.1 10^3/ul (0.0-0.5); EOSINOPHILS % 1.3 % (0.0-7.0); HEMATOCRIT 27.7 % (42.0-52.0); HEMOGLOBIN 8.8 g/dl (14.0-18.0); LYMPHOCYTES # 3.8 10^3/ul (0.8-2.9); MEAN CORPUSCULAR HEMOGLOBIN 29.3 pg (29.0-33.0); MEAN CORPUSCULAR HGB CONC 31.8 g/dl (32.0-37.0); MEAN CORPUSCULAR VOLUME 92.3 fl (82.0-101.0); MEAN PLATELET VOLUME 8.6 fl (7.4-10.4); MONOCYTE # 0.7 10^3/ul (0.3-0.9); MONOCYTES % 7.4 % (0.0-11.0); NEUTROPHIL # 4.5 10^3/ul (1.6-7.5); NEUTROPHILS % 49.4 % (39.0-77.0); PLATELET COUNT 418 10^3/UL (140-415); RED CELL DISTRIBUTION WIDTH 12.9 % (11.5-14.5)
[2018-12-20] MEDS: ALBUMIN HUMAN 5% 250 ML IV ×2 (20:47→21:13)
[2018-12-20] MEDS: HYDROCODONE/APAP (5/325) TAB PO (22:19)
[2018-12-20] MEDS: INSULIN GLARGINE [LANTus] (100 UNITS/ML) SYG SC (23:00)
[2018-12-20] MEDS: ATORVASTATIN 40 MG TAB PO (23:20)
[2018-12-21 00:13] LABS: IMMEDIATE SPIN CROSSMATCH 1 2
[2018-12-21] MEDS: FLUCONAZOLE 200 MG (PMX) 100 ML IVPB ×2 (00:28→17:42)
[2018-12-21] MEDS: INSULIN ASPART [NOVOLOG] 3 ML PEN SC ×7 (01:15→20:59)
[2018-12-21 05:15] LABS: ADD MAN DIFF? NO
[2018-12-21 05:26] LABS: WHITE BLOOD COUNT 7.7 10^3/ul (4.8-10.8)
[2018-12-21 05:26] LABS: BASOPHILS % 0.3 % (0.0-2.0); HEMATOCRIT 29.1 % (42.0-52.0); HEMOGLOBIN 9.4 g/dl (14.0-18.0); LYMPHOCYTES # 1.5 10^3/ul (0.8-2.9); LYMPHOCYTES % 19.6 % (15.0-51.0); MEAN CORPUSCULAR HEMOGLOBIN 29.4 pg (29.0-33.0); MEAN CORPUSCULAR HGB CONC 32.3 g/dl (32.0-37.0); MEAN CORPUSCULAR VOLUME 90.9 fl (82.0-101.0); MEAN PLATELET VOLUME 8.8 fl (7.4-10.4); MONOCYTE # 0.7 10^3/ul (0.3-0.9); MONOCYTES % 9.1 % (0.0-11.0); NEUTROPHIL # 5.5 10^3/ul (1.6-7.5); NEUTROPHILS % 70.7 % (39.0-77.0); PLATELET COUNT 282 10^3/UL (140-415); RED CELL DISTRIBUTION WIDTH 13.2 % (11.5-14.5)
[2018-12-21 05:38] LABS: ANION GAP 8 (5-13); BLOOD UREA NITROGEN 22 mg/dl (7-20); CALCIUM 8.7 mg/dl (8.4-10.2); CARBON DIOXIDE 22 mmol/L (21-31); CHLORIDE 108 mmol/L (97-110); CREATININE 0.94 mg/dl (0.61-1.24); GLUCOSE 204 mg/dl (70-220); POTASSIUM 4.2 mmol/L (3.5-5.1); SODIUM 138 mmol/L (135-144)
[2018-12-21] MEDS: CLOPIDOGREL 75 MG TAB PO (08:28)
[2018-12-21] MEDS: CEFEPIME 2GM/50 ML IVPB ×2 (08:28→20:59)
[2018-12-21] MEDS: ASPIRIN 81 MG TAB PO (08:28)
[2018-12-21] MEDS: CHOLECALCIFEROL 1,000 UNIT TAB PO (08:28)
[2018-12-21] MEDS: FAMOTIDINE 20 MG TAB PO ×2 (08:28→20:59)
[2018-12-21] MEDS: ENOXAPARIN 30 MG/0.3 ML SYG SC (08:34)
[2018-12-21] MEDS: BETADINE SOLUTION TOP ×2 (08:49→21:00)
[2018-12-21] MEDS: DOCUSATE SODIUM 100 MG CAP PO ×2 (08:49→20:59)
[2018-12-21] MEDS: ATORVASTATIN 40 MG TAB PO (20:59)
[2018-12-21] MEDS: INSULIN GLARGINE [LANTus] (100 UNITS/ML) SYG SC (21:37)
[2018-12-22 05:43] LABS: ADD MAN DIFF? NO
[2018-12-22 05:47] LABS: BASOPHILS % 0.4 % (0.0-2.0); EOSINOPHILS # 0.1 10^3/ul (0.0-0.5); EOSINOPHILS % 0.8 % (0.0-7.0); HEMATOCRIT 27.8 % (42.0-52.0); HEMOGLOBIN 8.8 g/dl (14.0-18.0); LYMPHOCYTES # 1.7 10^3/ul (0.8-2.9); LYMPHOCYTES % 22.3 % (15.0-51.0); MEAN CORPUSCULAR HEMOGLOBIN 29.6 pg (29.0-33.0); MEAN CORPUSCULAR HGB CONC 31.7 g/dl (32.0-37.0); MEAN CORPUSCULAR VOLUME 93.6 fl (82.0-101.0); MEAN PLATELET VOLUME 9.1 fl (7.4-10.4); MONOCYTE # 0.7 10^3/ul (0.3-0.9); MONOCYTES % 8.6 % (0.0-11.0); NEUTROPHIL # 5.2 10^3/ul (1.6-7.5); NEUTROPHILS % 67.4 % (39.0-77.0); PLATELET COUNT 283 10^3/UL (140-415); RED BLOOD COUNT 2.97 10^6/ul (4.70-6.10); RED CELL DISTRIBUTION WIDTH 13.8 % (11.5-14.5)
[2018-12-22 05:47] LABS: WHITE BLOOD COUNT 7.7 10^3/ul (4.8-10.8)
[2018-12-22 06:13] LABS: ANION GAP 6 (5-13); BLOOD UREA NITROGEN 17 mg/dl (7-20); CALCIUM 9.1 mg/dl (8.4-10.2); CARBON DIOXIDE 23 mmol/L (21-31); CHLORIDE 106 mmol/L (97-110); GLUCOSE 165 mg/dl (70-220); POTASSIUM 3.9 mmol/L (3.5-5.1); SODIUM 135 mmol/L (135-144)
[2018-12-22] MEDS: CHOLECALCIFEROL 1,000 UNIT TAB PO (08:36)
[2018-12-22] MEDS: CLOPIDOGREL 75 MG TAB PO (08:36)
[2018-12-22] MEDS: FAMOTIDINE 20 MG TAB PO ×2 (08:36→20:40)
[2018-12-22] MEDS: ASPIRIN 81 MG TAB PO (08:36)
[2018-12-22] MEDS: BETADINE SOLUTION TOP ×2 (08:37→20:42)
[2018-12-22] MEDS: INSULIN ASPART [NOVOLOG] 3 ML PEN SC ×7 (08:38→20:42)
[2018-12-22] MEDS: ENOXAPARIN 30 MG/0.3 ML SYG SC (08:40)
[2018-12-22] MEDS: DOCUSATE SODIUM 100 MG CAP PO ×2 (08:41→20:40)
[2018-12-22] MEDS: CEFEPIME 2GM/50 ML IVPB ×2 (09:27→20:40)
[2018-12-22] MEDS: ATORVASTATIN 40 MG TAB PO (20:40)
[2018-12-22] MEDS: INSULIN GLARGINE [LANTus] (100 UNITS/ML) SYG SC (20:42)
[2018-12-23 05:49] LABS: ADD MAN DIFF? NO
[2018-12-23 05:56] LABS: BASOPHILS % 0.4 % (0.0-2.0); EOSINOPHILS # 0.1 10^3/ul (0.0-0.5); EOSINOPHILS % 1.5 % (0.0-7.0); HEMATOCRIT 27.3 % (42.0-52.0); HEMOGLOBIN 8.7 g/dl (14.0-18.0); LYMPHOCYTES % 26.6 % (15.0-51.0); MEAN CORPUSCULAR HEMOGLOBIN 28.7 pg (29.0-33.0); MEAN CORPUSCULAR HGB CONC 31.9 g/dl (32.0-37.0); MEAN CORPUSCULAR VOLUME 90.1 fl (82.0-101.0); MEAN PLATELET VOLUME 8.8 fl (7.4-10.4); MONOCYTE # 0.6 10^3/ul (0.3-0.9); MONOCYTES % 7.8 % (0.0-11.0); NEUTROPHIL # 4.7 10^3/ul (1.6-7.5); NEUTROPHILS % 63.3 % (39.0-77.0); PLATELET COUNT 315 10^3/UL (140-415); RED BLOOD COUNT 3.03 10^6/ul (4.70-6.10); RED CELL DISTRIBUTION WIDTH 13.2 % (11.5-14.5)
[2018-12-23 05:56] LABS: WHITE BLOOD COUNT 7.3 10^3/ul (4.8-10.8)
[2018-12-23 06:37] LABS: ANION GAP 8 (5-13); BLOOD UREA NITROGEN 16 mg/dl (7-20); CALCIUM 8.9 mg/dl (8.4-10.2); CARBON DIOXIDE 25 mmol/L (21-31); CHLORIDE 104 mmol/L (97-110); CREATININE 0.86 mg/dl (0.61-1.24); GLUCOSE 100 mg/dl (70-220); POTASSIUM 3.8 mmol/L (3.5-5.1); SODIUM 137 mmol/L (135-144)
[2018-12-23] MEDS: INSULIN ASPART [NOVOLOG] 3 ML PEN SC ×7 (08:00→20:39)
[2018-12-23] MEDS: CEFEPIME 2GM/50 ML IVPB (08:22)
[2018-12-23] MEDS: BETADINE SOLUTION TOP ×2 (08:23→20:39)
[2018-12-23] MEDS: ASPIRIN 81 MG TAB PO (08:23)
[2018-12-23] MEDS: CLOPIDOGREL 75 MG TAB PO (08:23)
[2018-12-23] MEDS: FAMOTIDINE 20 MG TAB PO ×2 (08:23→20:39)
[2018-12-23] MEDS: ENOXAPARIN 30 MG/0.3 ML SYG SC (08:26)
[2018-12-23] MEDS: DOCUSATE SODIUM 100 MG CAP PO ×2 (08:32→20:39)
[2018-12-23] MEDS: CHOLECALCIFEROL 1,000 UNIT TAB PO (09:55)
[2018-12-23] MEDS: ATORVASTATIN 40 MG TAB PO (20:39)
[2018-12-23] MEDS: INSULIN GLARGINE [LANTus] (100 UNITS/ML) SYG SC (20:39)
[2018-12-24 05:53] LABS: ADD MAN DIFF? NO
[2018-12-24 05:57] LABS: WHITE BLOOD COUNT 5.8 10^3/ul (4.8-10.8)
[2018-12-24 05:57] LABS: BASOPHILS % 0.7 % (0.0-2.0); EOSINOPHILS # 0.1 10^3/ul (0.0-0.5); EOSINOPHILS % 2.4 % (0.0-7.0); HEMATOCRIT 28.2 % (42.0-52.0); HEMOGLOBIN 9.1 g/dl (14.0-18.0); LYMPHOCYTES # 1.8 10^3/ul (0.8-2.9); LYMPHOCYTES % 31.6 % (15.0-51.0); MEAN CORPUSCULAR HGB CONC 32.3 g/dl (32.0-37.0); MEAN CORPUSCULAR VOLUME 89.8 fl (82.0-101.0); MEAN PLATELET VOLUME 8.9 fl (7.4-10.4); MONOCYTE # 0.5 10^3/ul (0.3-0.9); MONOCYTES % 8.4 % (0.0-11.0); NEUTROPHIL # 3.3 10^3/ul (1.6-7.5); NEUTROPHILS % 56.6 % (39.0-77.0); PLATELET COUNT 368 10^3/UL (140-415); RED BLOOD COUNT 3.14 10^6/ul (4.70-6.10); RED CELL DISTRIBUTION WIDTH 13.2 % (11.5-14.5)
[2018-12-24 07:28] LABS: ANION GAP 8 (5-13); BLOOD UREA NITROGEN 20 mg/dl (7-20); CALCIUM 9.3 mg/dl (8.4-10.2); CARBON DIOXIDE 24 mmol/L (21-31); CHLORIDE 105 mmol/L (97-110); CREATININE 0.88 mg/dl (0.61-1.24); GLUCOSE 128 mg/dl (70-220); SODIUM 137 mmol/L (135-144)
[2018-12-24] MEDS: CHOLECALCIFEROL 1,000 UNIT TAB PO (08:14)
[2018-12-24] MEDS: FAMOTIDINE 20 MG TAB PO ×2 (08:14→20:28)
[2018-12-24] MEDS: CLOPIDOGREL 75 MG TAB PO (08:14)
[2018-12-24] MEDS: INSULIN ASPART [NOVOLOG] 3 ML PEN SC ×7 (08:15→20:28)
[2018-12-24] MEDS: ASPIRIN 81 MG TAB PO (08:17)
[2018-12-24] MEDS: ENOXAPARIN 30 MG/0.3 ML SYG SC (08:17)
[2018-12-24] MEDS: DOCUSATE SODIUM 100 MG CAP PO ×2 (08:18→20:28)
[2018-12-24] MEDS: BETADINE SOLUTION TOP ×2 (08:27→20:29)
[2018-12-24] MEDS: ATORVASTATIN 40 MG TAB PO (20:28)
[2018-12-24] MEDS: INSULIN GLARGINE [LANTus] (100 UNITS/ML) SYG SC (20:28)
[2018-12-25 05:49] LABS: ADD MAN DIFF? NO
[2018-12-25 06:06] LABS: WHITE BLOOD COUNT 5.7 10^3/ul (4.8-10.8)
[2018-12-25 06:06] LABS: BASOPHILS % 0.5 % (0.0-2.0); EOSINOPHILS # 0.2 10^3/ul (0.0-0.5); EOSINOPHILS % 2.8 % (0.0-7.0); HEMATOCRIT 28.4 % (42.0-52.0); HEMOGLOBIN 9.2 g/dl (14.0-18.0); LYMPHOCYTES # 1.9 10^3/ul (0.8-2.9); LYMPHOCYTES % 33.4 % (15.0-51.0); MEAN CORPUSCULAR HEMOGLOBIN 29.2 pg (29.0-33.0); MEAN CORPUSCULAR HGB CONC 32.4 g/dl (32.0-37.0); MEAN CORPUSCULAR VOLUME 90.2 fl (82.0-101.0); MONOCYTE # 0.5 10^3/ul (0.3-0.9); MONOCYTES % 8.9 % (0.0-11.0); NEUTROPHIL # 3.1 10^3/ul (1.6-7.5); NEUTROPHILS % 54.1 % (39.0-77.0); PLATELET COUNT 393 10^3/UL (140-415); RED BLOOD COUNT 3.15 10^6/ul (4.70-6.10); RED CELL DISTRIBUTION WIDTH 13.2 % (11.5-14.5)
[2018-12-25 06:41] LABS: ANION GAP 8 (5-13); BLOOD UREA NITROGEN 22 mg/dl (7-20); CALCIUM 9.1 mg/dl (8.4-10.2); CARBON DIOXIDE 24 mmol/L (21-31); CHLORIDE 105 mmol/L (97-110); GLUCOSE 143 mg/dl (70-220); SODIUM 137 mmol/L (135-144)
[2018-12-25] MEDS: INSULIN ASPART [NOVOLOG] 3 ML PEN SC ×7 (08:39→21:00)
[2018-12-25] MEDS: ASPIRIN 81 MG TAB PO (08:56)
[2018-12-25] MEDS: FAMOTIDINE 20 MG TAB PO ×2 (08:56→20:33)
[2018-12-25] MEDS: CHOLECALCIFEROL 1,000 UNIT TAB PO (08:56)
[2018-12-25] MEDS: CLOPIDOGREL 75 MG TAB PO (08:56)
[2018-12-25] MEDS: ENOXAPARIN 30 MG/0.3 ML SYG SC (08:58)
[2018-12-25] MEDS: BETADINE SOLUTION TOP ×2 (09:00→21:00)
[2018-12-25] MEDS: DOCUSATE SODIUM 100 MG CAP PO ×2 (09:01→20:33)
[2018-12-25] MEDS: LACTULOSE 30ML CUP PO (09:11)
[2018-12-25] MEDS: ATORVASTATIN 40 MG TAB PO (20:33)
[2018-12-25] MEDS: INSULIN GLARGINE [LANTus] (100 UNITS/ML) SYG SC (20:34)
[2018-12-26 05:37] LABS: ADD MAN DIFF? NO
[2018-12-26 05:49] LABS: WHITE BLOOD COUNT 5.6 10^3/ul (4.8-10.8)
[2018-12-26 05:49] LABS: BASOPHILS % 0.4 % (0.0-2.0); EOSINOPHILS # 0.1 10^3/ul (0.0-0.5); EOSINOPHILS % 2.1 % (0.0-7.0); HEMATOCRIT 30.4 % (42.0-52.0); HEMOGLOBIN 9.6 g/dl (14.0-18.0); LYMPHOCYTES # 2.2 10^3/ul (0.8-2.9); LYMPHOCYTES % 39.1 % (15.0-51.0); MEAN CORPUSCULAR HEMOGLOBIN 28.6 pg (29.0-33.0); MEAN CORPUSCULAR HGB CONC 31.6 g/dl (32.0-37.0); MEAN CORPUSCULAR VOLUME 90.5 fl (82.0-101.0); MONOCYTE # 0.6 10^3/ul (0.3-0.9); MONOCYTES % 9.9 % (0.0-11.0); NEUTROPHIL # 2.7 10^3/ul (1.6-7.5); NEUTROPHILS % 48.1 % (39.0-77.0); PLATELET COUNT 410 10^3/UL (140-415); RED BLOOD COUNT 3.36 10^6/ul (4.70-6.10); RED CELL DISTRIBUTION WIDTH 13.3 % (11.5-14.5)
[2018-12-26 06:11] LABS: ANION GAP 8 (5-13); BLOOD UREA NITROGEN 22 mg/dl (7-20); CALCIUM 9.3 mg/dl (8.4-10.2); CARBON DIOXIDE 22 mmol/L (21-31); CHLORIDE 108 mmol/L (97-110); CREATININE 0.95 mg/dl (0.61-1.24); GLUCOSE 143 mg/dl (70-220); SODIUM 138 mmol/L (135-144)
[2018-12-26] MEDS: INSULIN ASPART [NOVOLOG] 3 ML PEN SC ×6 (08:50→17:26)
[2018-12-26] MEDS: CLOPIDOGREL 75 MG TAB PO (08:52)
[2018-12-26] MEDS: ENOXAPARIN 30 MG/0.3 ML SYG SC (08:52)
[2018-12-26] MEDS: FAMOTIDINE 20 MG TAB PO (08:53)
[2018-12-26] MEDS: ASPIRIN 81 MG TAB PO (08:53)
[2018-12-26] MEDS: DOCUSATE SODIUM 100 MG CAP PO (08:56)
[2018-12-26] MEDS: BETADINE SOLUTION TOP (09:00)
[2018-12-26] MEDS: CHOLECALCIFEROL 1,000 UNIT TAB PO (11:56)
== END 2018-12-26 19:00 | DRG 240 ==
LOC: ICU 12-15 10:55 → 6WM 12-16 13:13 → ICU 12-20 22:32 → PP2 12-21 18:39 → E/R 10:05 → PP2 12-19 11:51
PROC: 041N09P Bypass Left Popliteal Artery to Foot Artery with Autologous Venous Tissue, Open Approach (ICD-10-PCS; principal; 2018-12-15 07:24)
PROC: 0Y6N0Z9 Detachment at Left Foot, Partial 1st Ray, Open Approach (ICD-10-PCS; 2018-12-15 07:24)
PROC: 06BQ0ZZ Excision of Left Saphenous Vein, Open Approach (ICD-10-PCS; 2018-12-15 07:24)
PROC: 047N3ZZ Dilation of Left Popliteal Artery, Percutaneous Approach (ICD-10-PCS; 2018-12-15 07:24)
PROC: 0Y6N0ZB Detachment at Left Foot, Partial 2nd Ray, Open Approach (ICD-10-PCS; 2018-12-15 07:24)
PROC: 0Y6N0ZC Detachment at Left Foot, Partial 3rd Ray, Open Approach (ICD-10-PCS; 2018-12-15 07:24)
PROC: 0HXNXZZ Transfer Left Foot Skin, External Approach (ICD-10-PCS; 2018-12-15 07:24)
PROC: B41GYZZ Fluoroscopy of Left Lower Extremity Arteries using Other Contrast (ICD-10-PCS; 2018-12-15 07:24)
PROC: B410YZZ Fluoroscopy of Abdominal Aorta using Other Contrast (ICD-10-PCS; 2018-12-15 07:24)
PROC: 30233N1 Transfusion of Nonautologous Red Blood Cells into Peripheral Vein, Percutaneous Approach (ICD-10-PCS; 2018-12-15 07:24)
DX: E11.52 Type 2 diabetes mellitus with diabetic peripheral angiopathy with gangrene (principal); M86.8X7 Other osteomyelitis, ankle and foot; I70.262 Atherosclerosis of native arteries of extremities with gangrene, left leg; M86.9 Osteomyelitis, unspecified; L03.116 Cellulitis of left lower limb; N17.9 Acute kidney failure, unspecified; E11.69 Type 2 diabetes mellitus with other specified complication; L03.032 Cellulitis of left toe; E11.621 Type 2 diabetes mellitus with foot ulcer; E11.40 Type 2 diabetes mellitus with diabetic neuropathy, unspecified; B96.5 Pseudomonas (aeruginosa) (mallei) (pseudomallei) as the cause of diseases classified elsewhere; B96.4 Proteus (mirabilis) (morganii) as the cause of diseases classified elsewhere; D64.9 Anemia, unspecified; E83.42 Hypomagnesemia; E78.5 Hyperlipidemia, unspecified; G89.4 Chronic pain syndrome; I95.9 Hypotension, unspecified; I10 Essential (primary) hypertension; Z79.4 Long term (current) use of insulin; Z79.82 Long term (current) use of aspirin
CPT/HCPCS: 36415; 36430; 37224; 71045; 73630-LT; 73718; 75630; 76775; 80048; 80053; 80061; 80202; 81001; 81003; 82043; 82306; 82565; 82652; 82962; 83036; 83605; 83735; 84100; 84155; 84300; 84484; 84520; 85025; 85610; 85730; 86850; 86900; 86901; 86920; 87040-91; 87045; 87070; 87081; 87086; 88307; 93005; 93306; 93922; 93970; 96365; 96375; 97110; 97116; 97162; 97530; 99285-25